=== PATIENT | female | born 1970 | race Caucasian/White ===

== ENCOUNTER 2019-08-09 11:50 | Emergency (ER) | payer OTHER ==
[~2019-08-09] VITALS: Ht 160 cm; Wt 40.8 kg
[2019-08-09] MEDS ORDERED: NITROGLYCERIN0.4 MG SUBLING (12:01)
[2019-08-09] MEDS ORDERED: LIPITOR40 MG PO (12:01)
[2019-08-09] MEDS ORDERED: ISOSORBIDE MON120 MG PO (12:01)
[2019-08-09] MEDS ORDERED: NIFEDIPINE ER90 M1 PO (12:01)
[2019-08-09] MEDS ORDERED: SINGULAIR 10 MG10 M1 PO (12:01)
[2019-08-09] MEDS ORDERED: SYMBICORT160 MCG/4. INH (12:02)
[2019-08-09] MEDS ORDERED: VENTOLIN HFA 1818 GM INH (12:02)
[2019-08-09 13:07] LABS: CALCIUM 8.9 mg/dL (8.5-10.1); CREATININE 0.6 mg/dL (0.6-1.3); POTASSIUM 3.7 mmol/L (3.5-5.1)
[2019-08-09] MEDS ORDERED: GENTAK5 ML INTRAOCULR (14:18)
[2019-08-09] MEDS ORDERED: NORCO 5-325 TA1 EAC1 PO (14:18)
[2019-08-09 14:33] VITALS: BP 112/66
== END 2019-08-09 14:34 | disposition home or self-care (01) ==
LOC: M.ERS 11:50
PROVIDERS: Emergency Medicine Emergency Medical Services
DX: S00.12XA Contusion of left eyelid and periocular area, initial encounter (principal); F17.200 Nicotine dependence, unspecified, uncomplicated; J44.9 Chronic obstructive pulmonary disease, unspecified; Y04.2XXA Assault by strike against or bumped into by another person, initial encounter; Y92.89 Other specified places as the place of occurrence of the external cause; Y93.89 Activity, other specified; Y99.8 Other external cause status

== ENCOUNTER 2019-08-12 10:45 | Inpatient (IN) | payer OTHER ==
[~2019-08-12] VITALS: Ht 160 cm; Wt 40.8 kg
[~2019-08-12 10:45] MED LIST: GENTAK5 ML INTRAOCULR; ISOSORBIDE MON120 MG PO; LIPITOR40 MG PO; NIFEDIPINE ER90 M1 PO; NITROGLYCERIN0.4 MG SUBLING; NORCO 5-325 TA1 EAC1 PO; SINGULAIR 10 MG10 M1 PO; SYMBICORT160 MCG/4. INH; VENTOLIN HFA 1818 GM INH
[2019-08-12 10:47] VITALS: BP 125/67
[2019-08-12 11:10] LABS: ABSOLUTE BASOPHILS 0.1 thou/uL (0.0-0.2); ABSOLUTE EOSINOPHILS 0.1 thou/uL (0.0-0.7); ABSOLUTE MONOCYTES 0.5 thou/uL (0.0-1.2); ABSOLUTE NEUTROPHILS 5.2 thou/uL (1.6-8.1); BASOPHILS 0.8 %; EOSINOPHILS 1.1 %; HEMATOCRIT 43.4 % (37.0-47.0); HEMOGLOBIN 14.8 gm/dL (12.0-15.0); LYMPHOCYTES 25.6 %; MCH 32.3 pg (26.0-34.0); MCHC 34.1 g/dL (28.0-37.0); MCV 94.7 fL (80.0-100.0); MONOCYTES 6.1 %; MPV 7.2 fl. (7.2-11.1); NUCLEATED RBCS 0 /100WBC; PLATELET COUNT* 322 thou/uL (150-400); POLYS 66.4 %; RBC 4.58 mil/uL (4.20-5.00); RDW-CV 15.9 % (10.5-14.5); WBC 7.8 thou/uL (4.0-11.0)
[2019-08-12 11:20] LABS: CALCIUM 8.9 mg/dL (8.5-10.1); CREATININE 0.6 mg/dL (0.6-1.3); POTASSIUM 4.2 mmol/L (3.5-5.1)
[2019-08-12 11:30] LABS: ALBUMIN 4.3 g/dL (3.4-5.0); MAGNESIUM 1.9 mg/dL (1.8-2.4); TOTAL BILIRUBIN 0.2 mg/dL (<0.1-1.0); TOTAL PROTEIN 8.5 g/dL (6.4-8.2); TROPONIN-I LEVEL 0.36 ng/mL (<0.06)
--- NOTE | 2019-08-12 12:26 | EKG ---
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
--- NOTE | 2019-08-12 13:09 | NUR ---
DAUGHTER YANICK UPDATED ON CONDITION BY PHONE. PT GAVE PERMISSION FOR NURSE TO SPEAK W/ DAUGHTER, STATES "SHE IS MY PROXY". 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 PT QUESTIONED ON PREFERENCE OF HOSPITAL CARE, STATES "I AM FINE HERE FOR NOW". DR. MALDONADO IS AT BEDSIDE SEEING PT.
[2019-08-12 15:30] VITALS: BP 115/69
[2019-08-12 15:45] VITALS: BP 108/71
--- NOTE | 2019-08-12 15:45 | NUR ---
ER ADMIT TO 233 VIA CART REPORT GIVEN PRIOR TO ARRIVAL PATIENT ORIENTED TO AND CALL LIGHT STILL WITH C/O PAIN L ARM 01/28 WILL CONTINUE TO MONITOR PATIENT INSTRUCTED TO CALL FOR ASSIST TO THE BATHROOM
--- NOTE | 2019-08-12 18:48 | NUR ---
PATIENTS HOME MEDICATIONS SECURED IN SECURITY MEDICATION BAG AND SENT TO PHARMACY
[2019-08-12 20:20] VITALS: BP 126/76
[2019-08-13 00:46] VITALS: BP 123/53
[2019-08-13 04:20] VITALS: BP 128/76
--- NOTE | 2019-08-13 06:10 | NUR ---
PT CARE ASSUMED AT 1930. SAT MAINTAINED IN RA. ALERT AND ORIENTED X4. CALL LIGHT WITHIN REACH AND BED IN LOW POSITION. C/O PAIN, MEDICATION GIVEN PER EMAR. EKG DONE AND PLACED IN CHART. HOURLY ROUNDING DONE FOR PT SAFETY.
[2019-08-13 08:00] VITALS: BP 104/70
[2019-08-13 10:05] LABS: CHOLESTEROL 191 mg/dL (<200); HDL CHOLESTEROL 106 mg/dL (>40); LDL CHOLESTEROL 71 mg/dL (<100); TC:HDL 1.8 Ratio (Not establshd); TRIGLYCERIDE 70 mg/dL (<150); VLDL 14 mg/dL (<40)
[2019-08-13 10:06] LABS: SERUM ASSESSMENT Clear
[2019-08-13] MEDS ORDERED: ASPIR 8181 MG PO (10:37)
--- NOTE | 2019-08-13 11:00 | NUR ---
MET WITH PT TO DISCUSS HOME SITUATION/DC PLANNING. PT LIVES WITH DTR, IS INDEPENDENT AND ACTIVE. USES NO EQUIPMENT. WORKS OUTSIDE THE HOME. DENIES ANY DC NEEDS.
[2019-08-13 11:39] VITALS: BP 104/70
[2019-08-13 11:50] VITALS: BP 104/70
[2019-08-13 11:52] VITALS: BP 104/70
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
--- NOTE | 2019-08-13 17:31 | 2DMMODE ---
[place] [address] 2 D/M-MODE ECHOCARDIOGRAM Name: DARRICK LEÓN LAZARO Room: [place] [address] ADM IN .R.#: [id number] Admission: 08/12/19 Attend Phys: Jake Larkin, Discharge: Date of : 66 Date of Service: 08/13/19 1730 Report #: [id number] THIS REPORT FOR: //name// APPROVED REPORT Study performed: 08/13/2019 15:13:51 EXAM: Limited 2D Echocardiogram Patient Location: Bedside BSA: 1.36 HR: 78 bpm BP: 128/70 mmHg Other Information Study Quality: Good Indications Elevated Troponin Chest Pain 2D Dimensions IVSd: 9.12 (7-11mm) LVOT Diam: 17.61 (18-24mm) LVDd: 40.56 mm PWd: 8.27 (7-11mm) Ascending Ao: 28.74 (22-36mm) LVDs: 29.81 (25-40mm) Aortic Root: 23.72 mm Left Ventricle The left ventricle is normal size. There is normal left ventricular wall thickness. Left ventricular systolic function is normal. The left ventricular ejection fraction is within the normal range. LVEF is 60%. Mitral Valve . Pericardium There is no pericardial effusion. <Conclusion> The left ventricle is normal size. There is normal left ventricular wall thickness. Left ventricular systolic function is normal. The left ventricular ejection fraction [place] [address] 2 D/M-MODE ECHOCARDIOGRAM Name: DARRICK LEÓN [facility] Room: [address] IN M.R.#: [id number] Admission: 08/12/19 Attend Phys: Jake Larkin, Discharge: Date of : 66 Date of Service: 08/13/191729 Report #: [id number] LVEF is 60%. There is no pericardial effusion. <ELECTRONICALLY SIGNED> By: Mervin Zimmerman MD, FACC 08/13/191729 29 29 Mervin Zimmerman MD, FACC /INF
--- NOTE | 2019-08-13 18:07 | NUR ---
PT ECHOCARDIOGRAM RESULTS IN, DR SCHUMACHER AGREEABLE WITH DISCHARGE. PT DISCHARGE INSTRUCTIONS REVIEWED. TELE AND IV DISCONTINUED. HOME MEDS GIVEN TO PT. ALL QUESTIONS ANSWERED. DISCHARGED VIA AMBULATION ACCOMPANIED BY RN.
--- NOTE | 2019-08-14 14:50 | EKG ---
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1970 Requested By: Brett Davis Order Number: [id number] MD: Mervin Zimmerman Measurements Intervals [place] Rate: 78 P: 76 AR: 113 QRS: 92 QRSD: 87 T: 82 QT: 373 QTc: 425 Interpretive Statements Sinus rhythm Borderline short AR interval Borderline right axis deviation Compared to ECG 08/12/2019 10:49:32 Sinus tachycardia no longer present Electronically Signed On 08-14-2019 14:49:47 CDT by Mervin Zimmerman [email or web address] <ELECTRONICALLY SIGNED> By: Mervin Zimmerman MD, [facility] 08/14/19 1449 1257 1257 Mervin Zimmerman MD, [facility] /EPI
--- NOTE | 2019-08-14 14:52 | EKG ---
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: : 1970 Requested By: Jake Larkin Order Number: [id number] ESPINAL: Mervin Zimmerman Measurements Intervals [place] Rate: 94 P: 72 TN: 116 QRS: 86 QRSD: 83 T: 82 QT: 347 QTc: 434 Interpretive Statements Sinus rhythm Borderline short [place] interval Possible anteroseptal infarct, old Compared to ECG 08/12/2019 10:49:32 No significant change Electronically Signed On 08-14-2019 14:51:45 CDT by Mervin Zimmerman [email or web address] <ELECTRONICALLY SIGNED> By: Mervin Zimmerman MD, [facility] 08/14/19 1451 21 21 Mervin Zimmerman MD, [facility] /EPI
== END 2019-08-13 18:12 | disposition home or self-care (01) | DRG 563 ==
LOC: M.ERS 10:45 → M.TBA-ER 13:10 → M.2W 13:10
PROVIDERS: Emergency Medicine Emergency Medical Services; ADMIT Internal Medicine
DX: S29.011A Strain of muscle and tendon of front wall of thorax, initial encounter (principal); I10 Essential (primary) hypertension; X58.XXXA Exposure to other specified factors, initial encounter; E78.5 Hyperlipidemia, unspecified; S46.212A Strain of muscle, fascia and tendon of other parts of biceps, left arm, initial encounter; J44.9 Chronic obstructive pulmonary disease, unspecified; F12.10 Cannabis abuse, uncomplicated; F10.10 Alcohol abuse, uncomplicated; F17.210 Nicotine dependence, cigarettes, uncomplicated; I25.10 Atherosclerotic heart disease of native coronary artery without angina pectoris; Z95.5 Presence of coronary angioplasty implant and graft; Z86.711 Personal history of pulmonary embolism; Z79.899 Other long term (current) drug therapy; Z79.82 Long term (current) use of aspirin; I25.2 Old myocardial infarction; Y93.89 Activity, other specified; Y92.89 Other specified places as the place of occurrence of the external cause; Y99.8 Other external cause status

== ENCOUNTER 2021-05-02 10:42 | Emergency (ER) | payer OTHER ==
[~2021-05-02] VITALS: Ht 160 cm; Wt 43.1 kg
[~2021-05-02 10:42] MED LIST changes: +ASPIR 8181 MG PO
[2021-05-02] MEDS ORDERED: TOPAMAX100 MG PO (10:56)
[2021-05-02] MEDS ORDERED: ASPIR-TRIN325 MG PO (10:56)
[2021-05-02 11:06] LABS: ABSOLUTE BASOPHILS 0.1 thou/uL (0.0-0.2); ABSOLUTE EOSINOPHILS 0.1 thou/uL (0.0-0.7); ABSOLUTE LYMPHOCYTES 2.1 thou/uL (0.8-5.3); ABSOLUTE MONOCYTES 0.4 thou/uL (0.0-1.2); ABSOLUTE NEUTROPHILS 4.9 thou/uL (1.6-8.1); BASOPHILS 0.8 %; EOSINOPHILS 0.9 %; HEMATOCRIT 48.3 % (37.0-47.0); HEMOGLOBIN 16.6 gm/dL (12.0-15.0); LYMPHOCYTES 28.3 %; MCH 33.9 pg (26.0-34.0); MCHC 34.3 g/dL (28.0-37.0); MCV 98.7 fL (80.0-100.0); MONOCYTES 5.1 %; MPV 7.2 fl. (7.2-11.1); NUCLEATED RBCS 0 /100WBC; PLATELET COUNT* 298 thou/uL (150-400); POLYS 64.9 %; RBC 4.89 mil/uL (4.20-5.00); RDW-CV 13.7 % (10.5-14.5); WBC 7.6 thou/uL (4.0-11.0)
[2021-05-02 11:25] LABS: CALCIUM 9.2 mg/dL (8.5-10.1); CREATININE 0.5 mg/dL (0.6-1.3)
[2021-05-02 11:26] LABS: POTASSIUM 4.7 mmol/L (3.5-5.1)
[2021-05-02 11:30] LABS: ALBUMIN 4.5 g/dL (3.4-5.0); TOTAL BILIRUBIN 0.4 mg/dL (<0.1-1.0); TOTAL PROTEIN 8.8 g/dL (6.4-8.2)
[2021-05-02 13:39] VITALS: BP 110/66
--- NOTE | 2021-05-03 14:15 | EKG ---
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[facility] 1970 Requested By: Brett Davis Order Number: [id number] MD: Guillermo Lee Measurements Intervals [place] Rate: 91 P: 77 WI: 125 QRS: 88 QRSD: 91 T: 75 QT: 358 QTc: 441 Interpretive Statements Sinus rhythm Anterior infarct, old, possible Compared to ECG 08/12/2019 20:22:44 No significant changes Electronically Signed On 05-03-2021 14:14:56 CDT by Guillermo Lee [email or web address] <ELECTRONICALLY SIGNED> By: Guillermo Lee MD, [facility] 05/03/21 1414 1057 1057 Guillermo Lee MD, [facility] /EPI
== END 2021-05-02 13:40 | disposition home or self-care (01) ==
LOC: M.ERS 10:42
PROVIDERS: Emergency Medicine Emergency Medical Services
DX: R51.9 Headache, unspecified (principal); R53.1 Weakness; J44.9 Chronic obstructive pulmonary disease, unspecified; I25.10 Atherosclerotic heart disease of native coronary artery without angina pectoris; F17.210 Nicotine dependence, cigarettes, uncomplicated; Z98.51 Tubal ligation status; Z86.711 Personal history of pulmonary embolism

== ENCOUNTER 2021-05-31 19:51 | Emergency (ER) | payer OTHER ==
[~2021-05-31] VITALS: Ht 160 cm; Wt 43.1 kg
[~2021-05-31 19:51] MED LIST changes: +ASPIR-TRIN325 MG PO; +TOPAMAX100 MG PO
[2021-05-31] MEDS ORDERED: TOPROL XL100 MG PO (19:59)
[2021-05-31] MEDS ORDERED: CYCLOBENZAPRINE5 MG PO (20:00)
[2021-05-31 20:49] LABS: ABSOLUTE BASOPHILS 0.1 thou/uL (0.0-0.2); ABSOLUTE EOSINOPHILS 0.1 thou/uL (0.0-0.7); ABSOLUTE LYMPHOCYTES 1.9 thou/uL (0.8-5.3); ABSOLUTE MONOCYTES 0.8 thou/uL (0.0-1.2); ABSOLUTE NEUTROPHILS 6.3 thou/uL (1.6-8.1); BASOPHILS 0.6 %; EOSINOPHILS 0.7 %; HEMOGLOBIN 15.8 gm/dL (12.0-15.0); LYMPHOCYTES 20.5 %; MCH 33.8 pg (26.0-34.0); MCHC 34.4 g/dL (28.0-37.0); MCV 98.3 fL (80.0-100.0); MONOCYTES 9.2 %; MPV 7.4 fl. (7.2-11.1); NUCLEATED RBCS 0 /100WBC; PLATELET COUNT* 356 thou/uL (150-400); RBC 4.68 mil/uL (4.20-5.00); RDW-CV 13.1 % (10.5-14.5); WBC 9.2 thou/uL (4.0-11.0)
[2021-05-31 20:56] LABS: CALCIUM 9.5 mg/dL (8.5-10.1); CREATININE 0.7 mg/dL (0.6-1.3)
[2021-05-31 21:00] LABS: ALBUMIN 4.7 g/dL (3.4-5.0); TOTAL BILIRUBIN 0.3 mg/dL (<0.1-1.0); TOTAL PROTEIN 8.6 g/dL (6.4-8.2)
[2021-06-01] MEDS ORDERED: XANAX 0.25 MG0.25 MG PO (00:34)
[2021-06-01 00:53] VITALS: BP 134/92
--- NOTE | 2021-06-01 14:39 | EKG ---
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1970 Requested By: Rosalba Kinney Order Number: [id number] MD: Mervin Zimmerman Measurements Intervals [place] Rate: 134 P: 80 MA: 115 QRS: 81 QRSD: 90 T: 70 QT: 287 QTc: 429 Interpretive Statements Sinus tachycardia Consider left ventricular hypertrophy Artifact in lead(s) I,II,aVR,aVL Compared to ECG 05/02/2021 10:57:07 Sinus rate has increased Myocardial infarct finding no longer present Electronically Signed On 06-01-2021 14:39:18 CDT by Mervin Zimmerman [email or web address] <ELECTRONICALLY SIGNED> By: Mervin Zimmerman MD, [facility] 06/01/21 1439 56 56 Mervin Zimmerman MD, [facility] /EPI
== END 2021-06-01 00:55 | disposition home or self-care (01) ==
LOC: M.ERS 19:51
PROVIDERS: Personal Emergency Response Attendant
DX: J43.9 Emphysema, unspecified (principal); J44.9 Chronic obstructive pulmonary disease, unspecified; I10 Essential (primary) hypertension; F17.210 Nicotine dependence, cigarettes, uncomplicated